=== PATIENT | female | born 1990 | race Caucasian/White ===

== ENCOUNTER → 2018-08-09 | Outpatient (CLI) | payer OTHER ==
[2013-06-16 17:48] VITALS: BP 114/55
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
== END | disposition home or self-care (01) ==
LOC: KCIC MRI 09:17
PROVIDERS: ATTEND Psychiatry & Neurology Neurology with Special Qualifications in Child Neurology
DX: Z48.811 Encounter for surgical aftercare following surgery on the nervous system (principal); Z98.890 Other specified postprocedural states
CPT/HCPCS: 70250